=== PATIENT | male | born 2000 | race Caucasian/White ===

== ENCOUNTER 2021-09-03 14:08 | Emergency (ER) | payer MEDICAID ==
[~2021-09-03] VITALS: Ht 175.3 cm; Wt 90.7 kg
[2021-09-03 14:17] VITALS: BP_SYST 140
--- NOTE | 2021-09-03 14:40 | NUR ---
Patient to ER bed 04 to gown for evaluation. Side rails up.
--- NOTE | 2021-09-03 15:00 | NUR ---
Pateint presents to ER with severe lower back pain. Patient states he was "jumping" around at a [employer] on saturday and did not feel pain. Patient woke up on saturday and was in a little pain, but then woke up on saturday and was in too much pain to walk. The patient is unable walk straight or bend at the waste without pain. All other systems WNL. Skin is clear and intact. respirations are normal and unlabored.
--- NOTE | 2021-09-03 15:10 | NUR ---
KUSUM Núñez at bedside examining patient.
[2021-09-03] MEDS ORDERED: MORPHINE 4 MG INJ. 4 MG/ML VIAL IM ONE ×2 (16:30→16:45)
[2021-09-03] MEDS ORDERED: ONDANSETRON 4 MG ODT TAB PO ONE (16:30)
[2021-09-03] MEDS ORDERED: CYCL10TA24 PO (16:36)
[2021-09-03] MEDS ORDERED: HYDR-3917 PO (16:36)
[2021-09-03] MEDS ORDERED: IBUP-1969 PO (16:36)
[2021-09-03 17:08] VITALS: BP_SYST 140
--- NOTE | 2021-09-03 17:09 | NUR ---
Patient given written and verbal discharge instructions and verbalizes understanding. ER MD discussed with patient the results and treatment provided. Patient in stable condition. ID arm band removed. Rx of Flexeril, Hydrocodone and Ibuprofen given. Patient educated on pain management and to follow up with PMD. Pain Scale 2/10. Opportunity for questions provided and answered. Medication side effect fact sheet provided.
== END 2021-09-03 17:09 | disposition home or self-care (01) ==
LOC: SED 14:08
DX: M54.41 Lumbago with sciatica, right side (principal); Z79.899 Other long term (current) drug therapy
CPT/HCPCS: 96372; 99283; J2270; Q0162

== ENCOUNTER 2022-08-05 12:11 | Emergency (ER) | payer SELFPAY ==
[~2022-08-05] VITALS: Ht 180.3 cm; Wt 94.3 kg
[2022-08-05 12:11] VITALS: BP_SYST 156
[~2022-08-05 12:11] MED LIST: CYCL10TA24 PO; HYDR-3917 PO; IBUP-1969 PO
--- NOTE | 2022-08-05 12:15 | NUR ---
BROUGHT BACK TO BED #3 AND TRIAGED. REPORT GIVEN TO GILES
--- NOTE | 2022-08-05 12:20 | NUR ---
Patient to ER bed 03 to gown for evaluation. Side rails up.
--- NOTE | 2022-08-05 12:25 | NUR ---
Pt presents to ED with report of light-headed x 5 days. Pt ambulated to [facility] with stable gait. Pt is awake a/o x4 and verbally responsive. Pt reports "i just dont feel good, i got my blood drawn yesterday but i dont want to wait for the results". Pt denies any pain or chest pain, denies any headaches. Pt also reports hands feeling "tingly" / "my hands and arms feel really light". Mother is at bedside. md at bedside for MSE. Safety measures in place
--- NOTE | 2022-08-05 12:25 | NUR ---
ER at bedside examining patient.
--- NOTE | 2022-08-05 13:42 | NUR ---
dicsharge instructions reviewed with pt, pt verbalized understanding and denied any questions. pt ambulated from ED with steady gait
[2022-08-05 13:43] VITALS: BP_SYST 129
== END 2022-08-05 13:42 | disposition home or self-care (01) ==
LOC: SED 12:11
DX: F43.0 Acute stress reaction (principal); R42 Dizziness and giddiness; R20.2 Paresthesia of skin; Z79.899 Other long term (current) drug therapy
CPT/HCPCS: 93005; 99283